=== PATIENT | female | born 1990 | race American Indian/Alaskan Native ===

== ENCOUNTER 2021-04-13 20:29 | Emergency (ER) | payer OTHER ==
[2021-04-13 20:42] VITALS: BP 145/98
[2021-04-13] MEDS ORDERED: SODIUM CHLORIDE 0.9% 1000 ML 1,000 ML IV ONE (21:24)
[2021-04-13] MEDS ORDERED: FAMOTIDINE 20 MG/2 ML INJ IV ONE (21:24)
[2021-04-13 22:09] LABS: Albumin 4.4 g/dL (3.9-5)
[2021-04-13 22:11] LABS: Basophils # (Auto) 0.1 K/mm3 (0.0-0.1); Eosinophils # (Auto) 0.1 K/mm3 (0.0-0.4); Eosinophils % (Auto) 0.8 % (0.0-4.3); Hematocrit 44.6 % (30.3-42.9); Lymphocytes # (Auto) 1.7 K/mm3 (1.2-5.4); Mean Corpuscular HGB Conc 34 % (30-34); Mean Corpuscular Volume 102 fl (79-97); Monocytes # (Auto) 0.5 K/mm3 (0.0-0.8); Platelet Count 280 K/mm3 (140-440); Red Blood Count 4.36 M/mm3 (3.65-5.03); Red Cell Distribution Width 15.2 % (13.2-15.2)
[2021-04-13] MEDS ORDERED: medroxyPROGESTERone ACETATE 5 MG TAB PO ONE (22:16)
--- NOTE | 2021-04-13 22:21 | Emergency Department Report ---
ED Female HPI - General Chief complaint: Vaginal Bleeding Stated complaint: VAGINAL BLEEDING/BLOOD CLOTS Source: patient Mode of arrival: Ambulatory Limitations: No Limitations - History of Present Illness Initial comments: Patient is a nulliparous 30-year-old -[place] female with a history of PCOS, GERD, chronic alcoholism, anxiety and morbid obesity who presents to the ED with complaint of acute onset persistent heavy vaginal bleeding for the last 8 weeks. Patient states that the symptoms started initially as menstrual cycle although she has not had a menstrual cycle in over 2 years after being diagnosed with PCOS. Patient states that her menstrual cycle used to be irregular for a long time then she was diagnosed with PCOS and subsequently placed on some medication that she could not remember which ended up regularizing her menstrual cycle. Patient states that when the medicine ran out she never renewed the medication. Patient states that this latest episode has been persistent, and worsened in the last 5 days with large blood clots. Patient also states that she has been having elevated heart rates because of worsening anxiety. Patient denies vaginal discharge, dysuria, urinary frequency and urgency, abdominal pain, nausea and vomiting, fever, chills, cough, sore throat, dizziness or syncope and headache. MD Complaint: vaginal bleeding, other (anxiety) -: Sudden, week(s) (8) Location: other (vaginal) Radiation: non-radiating Severity: moderate Severity scale (0 -10): 3 Quality: dull Consistency: constant Improves with: none Worsens with: none Are you Now?: No Last Menstrual Period: 02/25/21 EDC: 12/02/21 Associated Symptoms: vaginal bleeding. denies: vaginal discharge, abdominal pain, nausea/vomiting, fever/chills, headaches, loss of appetite, dysuria, hematuria, rash, shortness of breath, syncope, weakness, other - Related Data Sexually active: No : 0 Para: 0 A: 0 Previous Rx's Medication Instructions Recorded Last Taken Type Ranitidine HCl [Zantac] 300 mg PO QDAY #30 tablet 07/07/14 07/17/14 Rx Acetaminophen/Codeine 1 tab PO Q6H PRN #12 tablet 07/19/14 Unknown Rx [Acetaminophen-Codeine #3 TAB] Albuterol Sulfate [Ventolin HFA] 2 puff IH Q4H PRN #1 hfa.aer.ad 08/09/14 Unknown Rx Azithromycin [Zithromax Z-SHARON] 250 mg PO DAILY #1 pkg 08/09/14 Unknown Rx Promethazine /Codeine 5 ml PO Q6H PRN #150 ml 08/09/14 Unknown Rx [Phenergan/Codeine 6.25-10 mg/5 ml] predniSONE [Deltasone] 50 mg PO QDAY #5 tab 08/09/14 Unknown Rx Amoxicillin [Amoxicillin TAB] 875 mg PO BID #20 tablet 12/16/14 Unknown Rx Fluticasone [Flonase] 1 spray NS QDAY #1 bottle 12/16/14 Unknown Rx predniSONE [Prednisone] 20 mg PO QAM #5 tablet 12/16/14 Unknown Rx Acetaminophen/Codeine [Tylenol 1 tab PO Q4HR PRN #21 tablet 03/03/15 Unknown Rx /Codeine # 3 tab] Promethazine [Phenergan TAB] 25 mg PO Q6HR PRN #20 tab 03/03/15 Unknown Rx Famotidine [Pepcid] 20 mg PO BID #60 tablet 04/14/21 Unknown Rx Ondansetron [Zofran Odt] 4 mg PO Q6HR PRN #15 tab.rapdis 04/14/21 Unknown Rx cephALEXin [Keflex] 500 mg PO Q8HR #30 cap 04/14/21 Unknown Rx medroxyPROGESTERone ACETATE 10 mg PO DAILY #14 tablet 04/14/21 Unknown Rx [Provera] Allergies Allergy/AdvReac Type Severity Reaction Status Date / Time naproxen Allergy HALLUCINATE Verified 07/19/14 00:36 ED Review of Systems ROS: Stated complaint: VAGINAL BLEEDING/BLOOD CLOTS Other details as noted in HPI Constitutional: denies: chills, fever Eyes: denies: eye pain, eye discharge, vision change ENT: denies: ear pain, throat pain Respiratory: denies: cough, shortness of breath, wheezing Cardiovascular: denies: chest pain, palpitations Endocrine: no symptoms reported Gastrointestinal: denies: abdominal pain, nausea, vomiting, diarrhea Genitourinary: abnormal menses (Heavy vaginal bleeding). denies: urgency, dysuria, frequency, hematuria, discharge Musculoskeletal: denies: back pain, joint swelling, arthralgia Skin: denies: rash, lesions Neurological: denies: headache, weakness, paresthesias Psychiatric: anxiety. denies: depression, auditory hallucinations, visual hallucinations, suicidal thoughts Hematological/Lymphatic: denies: easy bleeding, easy bruising ED Past Medical Hx - Past Medical History Previous Medical History?: Yes Hx GERD: Yes Additional medical history: H Pylori. PCOS - Surgical History Past Surgical History?: Yes Additional Surgical History: Left hand foreign body - Social History Smoking Status: Never Smoker Substance Use Type: None - Medications Home Medications: Home Medications Medication Instructions Recorded Confirmed Last Taken Type Ranitidine HCl [Zantac] 300 mg PO QDAY #30 tablet 07/07/14 07/19/14 07/17/14 Rx Acetaminophen/Codeine 1 tab PO Q6H PRN #12 tablet 07/19/14 Unknown Rx [Acetaminophen-Codeine #3 TAB] Albuterol Sulfate [Ventolin HFA] 2 puff IH Q4H PRN #1 hfa.aer.ad 08/09/14 Un known Rx Azithromycin [Zithromax Z-SHARON] 250 mg PO DAILY #1 pkg 08/09/14 Unknown Rx Promethazine /Codeine 5 ml PO Q6H PRN #150 ml 08/09/14 Unknown Rx [Phenergan/Codeine 6.25-10 mg/5 ml] predniSONE [Deltasone] 50 mg PO QDAY #5 tab 08/09/14 Unknown Rx Amoxicillin [Amoxicillin TAB] 875 mg PO BID #20 tablet 12/16/14 Unknown Rx Fluticasone [Flonase] 1 spray NS QDAY #1 bottle 12/16/14 Unknown Rx predniSONE [Prednisone] 20 mg PO QAM #5 tablet 12/16/14 Unknown Rx Acetaminophen/Codeine [Tylenol 1 tab PO Q4HR PRN #21 tablet 03/03/15 Unknown Rx /Codeine # 3 tab] Promethazine [Phenergan TAB] 25 mg PO Q6HR PRN #20 tab 03/03/15 Unknown Rx Famotidine [Pepcid] 20 mg PO BID #60 tablet 04/14/21 Unknown Rx Ondansetron [Zofran Odt] 4 mg PO Q6HR PRN #15 tab.rapdis 04/14/21 Unknown Rx cephALEXin [Keflex] 500 mg PO Q8HR #30 cap 04/14/21 Unknown Rx medroxyPROGESTERone ACETATE 10 mg PO DAILY #14 tablet 04/14/21 Unknown Rx [Provera] ED Physical Exam - General Limitations: No Limitations General appearance: alert, in no apparent distress - Head Head exam: Present: atraumatic, normocephalic, normal inspection - Eye Eye exam: Present: normal appearance, PERRL, EOMI Pupils: Present: normal accommodation - ENT ENT exam: Present: normal exam, normal orophraynx, mucous membranes moist, TM's normal bilaterally, normal external ear exam - Neck Neck exam: Present: normal inspection, full ROM. Absent: tenderness - Respiratory Respiratory exam: Present: normal lung sounds bilaterally. Absent: respiratory distress, wheezes, rales, rhonchi, chest wall tenderness, decreased breath sounds, prolonged expiratory - Cardiovascular Cardiovascular Exam: Present: normal rhythm, tachycardia, normal heart sounds. Absent: systolic murmur, diastolic murmur, rubs, gallop - GI/Abdominal GI/Abdominal exam: Present: soft, normal bowel sounds. Absent: distended, tenderness, guarding, rebound, rigid, hyperactive bowel sounds, hypoactive bowel sounds, organomegaly, mass - Bi-manual exam: Present: other (Pelvic exam deferred at this time) - Extremities Exam Extremities exam: Present: normal inspection, full ROM, normal capillary refill - Back Exam Back exam: Present: normal inspection, full ROM. Absent: tenderness, CVA tenderness (R), CVA tenderness (L), muscle spasm - Neurological Exam Neurological exam: Present: alert, oriented X3, CN II-XII intact, normal gait, reflexes normal - Psychiatric Psychiatric exam: Present: normal affect, normal mood, anxious - Skin Skin exam: Present: warm, dry, intact, normal color. Absent: rash ED Course Vital Signs 04/13/21 20:39 Temperature 98.3 F Pulse Rate 100 H Respiratory 18 Rate Blood Pressure 145/98 O2 Sat by Pulse 94 Oximetry ED Medical Decision Making - Lab Data Result diagrams: 04/13/21 21:29 04/13/21 21:29 - Medical Decision Making This is a nulliparous 30-year-old -[place] female with a history of PCOS, GERD, chronic alcoholism, anxiety and morbid obesity who presents to the ED with complaint of acute onset persistent heavy vaginal bleeding for the last 8 weeks. Patient states that the symptoms started initially as menstrual cycle although she has not had a menstrual cycle in over 2 years after being diagnosed with PCOS. Patient states that her menstrual cycle used to be irregular for a long time then she was diagnosed with PCOS and subsequently placed on some medication that she could not remember which ended up regularizing her menstrual cycle. Patient states that when the medicine ran out she never renewed the medication. Patient states that this latest episode has been persistent, and worsened in the last 5 days with large blood clots. Patient also states that she has been having elevated heart rates because of worsening anxiety. In the ED, patient is alert and oriented x3 and is not in any distress but anxious and tachycardic in triage. Labs were drawn including urinalysis, and patient was treated in the ED with Pepcid and normal saline 1 L IV bolus x1. Lab test results were reviewed and showed acute urinary tract infection and elevated LFTs consistent with your chronic alcohol abuse. Therefore take medications as advised, drink plenty of fluids and follow-up with your [facility] physician in 7 to 10 days for reevaluation. Consider alcohol rehab to cope with your anxiety. - Differential Diagnosis Dysfunctional uterine bleeding; ; UTI; metrorrhagia; dehydration Critical care attestation.: If time is entered above; I have spent that time in minutes in the direct care of this critically ill patient, excluding procedure time. ED Disposition Clinical Impression: Dysfunctional uterine bleeding, Metrorrhagia, Anxiety as acute reaction to exceptional stress, Acute urinary tract infection Disposition: 01 HOME / SELF CARE / HOMELESS Is pt being admited?: No Does the pt Need Aspirin: No Condition: Stable Instructions: Urinary Tract Infection, Adult, [id number], Metrorrhagia, [id number], Menorrhagia, [id number], Abnormal Uterine Bleeding, [id number] Additional Instructions: Take medication with food, doing plenty of fluids and follow-up with your primary care physician or [facility] physician in 7 to 10 days for reevaluation. Return to the ED immediately if symptoms get worse. Consider alcohol detox and rehab to help you manage your anxiety. Prescriptions: cephALEXin [Keflex] 500 mg PO Q8HR #30 cap Famotidine [Pepcid] 20 mg PO BID #60 tablet medroxyPROGESTERone ACETATE [Provera] 10 mg PO DAILY #14 tablet Ondansetron [Zofran Odt] 4 mg PO Q6HR PRN #15 tab.rapdis PRN Reason: Nausea Referrals: [facility] [Provider Group] - 3-5 Days Time of Disposition: 00:16 Print Language: GREEK
[2021-04-13 22:24] LABS: Alanine Aminotransferase 96 units/L (7-56); Blood Urea Nitrogen 6 mg/dL (7-17); Calcium 8.4 mg/dL (8.4-10.2); Hemolysis Index 6
[2021-04-13 22:26] LABS: BUN/Creatinine Ratio 10
[2021-04-13 23:48] LABS: Bilirubin,Urine NEG (Negative); Blood,Urine LG (Negative); Color,Urine Red (Yellow); Mucus,Urine FEW /HPF; Urobilinogen,Urine < 2.0 mg/dL (<2.0)
[2021-04-14 00:01] LABS: Protein,Urine >500 mg/dL (Negative)
[2021-04-14 00:02] LABS: RBC,Urine > 182.0 /HPF (0.0-6.0); WBC,Urine > 182.0 /HPF (0.0-6.0)
== END 2021-04-14 02:10 | disposition home or self-care (01) ==
LOC: ED 20:29
DX: N93.8 Other specified abnormal uterine and vaginal bleeding (principal); N92.1 Excessive and frequent menstruation with irregular cycle; F41.1 Generalized anxiety disorder; F43.0 Acute stress reaction; N39.0 Urinary tract infection, site not specified; Z88.8 Allergy status to other drugs, medicaments and biological substances
CPT/HCPCS: 36415; 80053; 81001; 83690; 84703; 85025; 96361; 96374; 99283; J7030

== ENCOUNTER 2021-04-15 18:23 | Emergency (ER) | payer OTHER ==
[2021-04-15 18:31] VITALS: BP 145/90
--- NOTE | 2021-04-15 20:58 | Vascular Lab Report ---
DUPLEX DOPPLER LOWER EXTREMITY VEINS, LEFT INDICATION / CLINICAL INFORMATION: Left leg pain. TECHNIQUE: Duplex doppler imaging was performed through the veins of the left lower extremity using venous compr ession and other maneuvers. COMPARISON: None available. FINDINGS: LEFT COMMON FEMORAL VEIN: Negative. LEFT FEMORAL VEIN: Negative. LEFT POPLITEAL VEIN: Negative. LEFT CALF VEINS: Negative. ADDITIONAL FINDINGS: No abnormal mass or fluid collection is seen. IMPRESSION: No sonographic evidence for DVT in the left lower extremity. Signer Name: Pedro Dobson MD Signed: 04/15/2021 8:54 PM Workstation Name: [id number]
--- NOTE | 2021-04-15 22:18 | Emergency Department Report ---
ED Extremity Problem HPI - General Chief complaint: Extremity Injury, Lower Stated complaint: LEG NUMBNESS/WAS SEEN LASTNIGHT Time Seen by Provider: 04/15/21 21:21 Source: patient Mode of arrival: Ambulatory Limitations: No Limitations - History of Present Illness Initial comments: Patient is a 30-year-old -[place] female with a history of GERD, morbid obesity, and chronic alcoholism who presents to the ED with complaint of acute onset nontraumatic anterior left lower leg and left foot pain for the last 12 hours. Patient states that the pain is worse with movement or palpation of the left foot and left lower leg. Patient denies fall, traumatic injury, nausea, vomiting, fever, chills, dizziness, syncope, chest pain or shortness of breath, back pain, numbness and tingling or weakness of lower extremities bilaterally or change in vision. MD Complaint: extremity pain (Left foot and lower leg pain) -: Sudden, hour(s) (12) Location: left, lower extremity (Lower leg and foot pain) History of Same: No -: Yes arthralgia Radiation: distal Severity scale (0 -10): 4 Quality: aching, dull Consistency: constant Improves with: rest Worsens with: weight bearing, walking, palpation Associated Symptoms: denies other symptoms, arthralgias (Left lower leg and foot pain). denies: chest pain, shortness of breath, fever, myalgias - Related Data Previous Rx's Medication Instructions Recorded Last Taken Type Ranitidine HCl [Zantac] 300 mg PO QDAY #30 tablet 07/07/14 07/17/14 Rx Acetaminophen/Codeine 1 tab PO Q6H PRN #12 tablet 07/19/14 Unknown Rx [Acetaminophen-Codeine #3 TAB] Albuterol Sulfate [Ventolin HFA] 2 puff IH Q4H PRN #1 hfa.aer.ad 08/09/14 Unknown Rx Azithromycin [Zithromax Z-SHARON] 250 mg PO DAILY #1 pkg 08/09/14 Unknown Rx Promethazine /Codeine 5 ml PO Q6H PRN #150 ml 08/09/14 Unknown Rx [Phenergan/Codeine 6.25-10 mg/5 ml] predniSONE [Deltasone] 50 mg PO QDAY #5 tab 08/09/14 Unknown Rx Amoxicillin [Amoxicillin TAB] 875 mg PO BID #20 tablet 12/16/14 Unknown Rx Fluticasone [Flonase] 1 spray NS QDAY #1 bottle 12/16/14 Unknown Rx predniSONE [Prednisone] 20 mg PO QAM #5 tablet 12/16/14 Unknown Rx Acetaminophen/Codeine [Tylenol 1 tab PO Q4HR PRN #21 tablet 03/03/15 Unknown Rx /Codeine # 3 tab] Promethazine [Phenergan TAB] 25 mg PO Q6HR PRN #20 tab 03/03/15 Unknown Rx Famotidine [Pepcid] 20 mg PO BID #60 tablet 04/14/21 Unknown Rx Ondansetron [Zofran Odt] 4 mg PO Q6HR PRN #15 tab.rapdis 04/14/21 Unknown Rx cephALEXin [Keflex] 500 mg PO Q8HR #30 cap 04/14/21 Unknown Rx medroxyPROGESTERone ACETATE 10 mg PO DAILY #14 tablet 04/14/21 Unknown Rx [Provera] Allergies Allergy/AdvReac Type Severity Reaction Status Date / Time naproxen Allergy HALLUCINATE Verified 04/15/21 18:25 ED Review of Systems ROS: Stated complaint: LEG NUMBNESS/WAS SEEN LASTNIGHT Other details as noted in HPI Constitutional: denies: chills, fever Eyes: denies: eye pain, eye discharge, vision change ENT: denies: ear pain, throat pain Respiratory: denies: cough, shortness of breath, wheezing Cardiovascular: denies: chest pain, palpitations Endocrine: no symptoms reported Gastrointestinal: denies: abdominal pain, nausea, diarrhea Genitourinary: denies: urgency, dysuria, discharge Musculoskeletal: arthralgia (Left lower leg and foot pain). denies: back pain, joint swelling Skin: denies: rash, lesions Neurological: denies: headache, weakness, paresthesias Psychiatric: denies: anxiety, depression Hematological/Lymphatic: denies: easy bleeding, easy bruising ED Past Medical Hx - Past Medical History Hx GERD: Yes Additional medical history: H Pylori. PCOS - Surgical History Additional Surgical History: Left hand foreign body - Social History Smoking Status: Never Smoker Substance Use Type: None - Medications Home Medications: Home Medications Medication Instructions Recorded Confirmed Last Taken Type Ranitidine HCl [Zantac] 300 mg PO QDAY #30 tablet 07/07/14 07/19/14 07/17/14 Rx Acetaminophen/Codeine 1 tab PO Q6H PRN #12 tablet 07/19/14 Unknown Rx [Acetaminophen-Codeine #3 TAB] Albuterol Sulfate [Ventolin HFA] 2 puff IH Q4H PRN #1 hfa.aer.ad 08/09/14 Unknown Rx Azithromycin [Zithromax Z-SHARON] 250 mg PO DAILY #1 pkg 08/09/14 Unknown Rx Promethazine /Codeine 5 ml PO Q6H PRN #150 ml 08/09/14 Unknown Rx [Phenergan/Codeine 6.25-10 mg/5 ml] predniSONE [Deltasone] 50 mg PO QDAY #5 tab 08/09/14 Unknown Rx Amoxicillin [Amoxicillin TAB] 875 mg PO BID #20 tablet 12/16/14 Unknown Rx Fluticasone [Flonase] 1 spray NS QDAY #1 bottle 12/16/14 Unknown Rx predniSONE [Prednisone] 20 mg PO QAM #5 tablet 12/16/14 Unknown Rx Acetaminophen/Codeine [Tylenol 1 tab PO Q4HR PRN #21 tablet 03/03/15 Unknown Rx /Codeine # 3 tab] Promethazine [Phenergan TAB] 25 mg PO Q6HR PRN #20 tab 03/03/15 Unknown Rx Famotidine [Pepcid] 20 mg PO BID #60 tablet 04/14/21 Unknown Rx Ondansetron [Zofran Odt] 4 mg PO Q6HR PRN #15 tab.rapdis 04/14/21 Unknown Rx cephALEXin [Keflex] 500 mg PO Q8HR #30 cap 04/14/21 Unknown Rx medroxyPROGESTERone ACETATE 10 mg PO DAILY #14 tablet 04/14/21 Unknown Rx [Provera] ED Physical Exam - General Limitations: No Limitations General appearance: alert, in no apparent distress - Head Head exam: Present: atraumatic, normocephalic, normal inspection - Eye Eye exam: Present: normal appearance, PERRL, EOMI Pupils: Present: normal accommodation - ENT ENT exam: Present: normal exam, normal orophraynx, mucous membranes moist, TM's normal bilaterally, normal external ear exam - Neck Neck exam: Present: normal inspection, full ROM - Respiratory Respiratory exam: Present: normal lung sounds bilaterally. Absent: respiratory distress, wheezes, rhonchi, chest wall tenderness, accessory muscle use, prolonged expiratory - Cardiovascular Cardiovascular Exam: Present: regular rate, normal rhythm, normal heart sounds. Absent: systolic murmur, diastolic murmur, rubs, gallop - GI/Abdominal GI/Abdominal exam: Present: soft, normal bowel sounds. Absent: tenderness, guarding, rebound, hyperactive bowel sounds, hypoactive bowel sounds, organomegaly - Extremities Exam Extremities exam: Present: normal inspection, full ROM, tenderness (Palpable mild anterior left lower leg and foot tenderness), normal capillary refill - Back Exam Back exam: Present: normal inspection, full ROM. Absent: tenderness, CVA tenderness (R), CVA tenderness (L), muscle spasm, paraspinal tenderness, vertebral tenderness - Neurological Exam Neurological exam: Present: alert, oriented X3, CN II-XII intact, normal gait, reflexes normal - Psychiatric Psychiatric exam: Present: normal affect, normal mood - Skin Skin exam: Present: warm, dry, intact, normal color. Absent: rash ED Course Vital Signs 04/15/21 04/16/21 18:31 01:55 Temperature 97.9 F Pulse Rate 109 H 92 H Respiratory 18 16 Rate Blood Pressure 145/90 O2 Sat by Pulse 99 100 Oximetry ED Medical Decision Making - Medical Decision Making This is a 30-year-old -[place] female with a history of GERD, morbid obesity, and chronic alcoholism who presents to the ED with complaint of acute onset nontraumatic anterior left lower leg and left foot pain for the last 12 hours. Patient states that the pain is worse with movement or palpation of the left foot and left lower leg. In the ED, patient is alert and oriented x3 and is not in any distress. The left lower leg Doppler ultrasound showed no sonographic evidence of DVT. Patient symptoms are likely musculoskeletal as it is reproduced by palpation and movement. Patient was discharged home and advised to take [id number] pain medications ibuprofen or Tylenol as needed and follow-up with her primary care physician in 5 to 7 days for reevaluation or return to the ED immediately if symptoms get worse. - Differential Diagnosis Muscle strain; muscle spasm; DVT; tendinitis Critical care attestation.: If time is entered above; I have spent that time in minutes in the direct care of this critically ill patient, excluding procedure time. ED Disposition Clinical Impression: Muscle strain of left lower extremity Qualifiers: Encounter type: initial encounter Qualified Code(s): S86.912A - Strain of unspecified muscle(s) and tendon(s) at lower leg level, left leg, initial encounter Disposition: HOME / SELF CARE / HOMELESS Is pt being admited?: No Does the pt Need Aspirin: No Condition: Stable Instructions: Muscle Strain, [id number] Additional Instructions: The left lower extremity Doppler ultrasound showed no sonographic evidence of DVT. Your symptoms are likely musculoskeletal muscle strain. Therefore take [id number] pain medications like ibuprofen or Tylenol as needed with food for pain. Follow-up with your primary care physician in 5 to 7 days for reevaluation or return to the ED immediately if symptoms get worse. Referrals: FRANK BENITEZ NP [Primary Care Provider] - 3-5 Days Forms: Work/School Release Form(ED) Time of Disposition: 22:19 Print Language: [place]
== END 2021-04-16 03:57 | disposition home or self-care (01) ==
LOC: ED 18:23
DX: S86.912A Strain of unspecified muscle(s) and tendon(s) at lower leg level, left leg, initial encounter (principal); Z88.6 Allergy status to analgesic agent; X58.XXXA Exposure to other specified factors, initial encounter; Y93.89 Activity, other specified; Y92.89 Other specified places as the place of occurrence of the external cause; Y99.8 Other external cause status
CPT/HCPCS: 99283

== ENCOUNTER 2021-04-19 10:04 | Emergency (ER) | payer OTHER ==
--- NOTE | 2021-04-19 10:15 | Emergency Department Report ---
ED General Adult HPI - General Chief complaint: Medical Clearance Stated complaint: My GI doctor sent me PUI?: No Time Seen by Provider: 04/19/21 10:13 Source: patient, RN notes reviewed Mode of arrival: Ambulatory Limitations: No Limitations - History of Present Illness Initial comments: During the history and physical examination, I am chaperoned by ABBY ROSENBAUM The patient is a 30-year-old female. She she reports that she is not . She has a history of morbid obesity. She presents to the ER today with a complaint of painless rectal bleeding. She reports that her mid level clinician, Dr. Rodriguez told her to come to the emergency room. The patient denies headache, neck pain, chest pain, abdominal pain, shortness of breath. She denies hematemesis. She denies dysuria. She reports intermittent vaginal bleeding which is basically resolved at this time, as she reports that she recently sought medical evaluation for vaginal bleeding. Report of rectal bleeding is dark red blood for the past day or so. It is associated with defecation. The patient denies foreign body insertion, and receptive anal intercourse. The patient reports intermittent vomiting, which is now resolved. There is no abdominal pain at this time. -: Gradual Severity scale (0 -10): 8 Consistency: intermittent Improves with: none Worsens with: none - Related Data Previous Rx's Medication Instructions Recorded Last Taken Type Ranitidine HCl [Zantac] 300 mg PO QDAY #30 tablet 07/07/14 07/17/14 Rx Albuterol Sulfate [Ventolin HFA] 2 puff IH Q4H PRN #1 hfa.aer.ad 08/09/14 Unknown Rx Azithromycin [Zithromax Z-SHARON] 250 mg PO DAILY #1 pkg 08/09/14 Unknown Rx predniSONE [Deltasone] 50 mg PO QDAY #5 tab 08/09/14 Unknown Rx Amoxicillin [Amoxicillin TAB] 875 mg PO BID #20 tablet 12/16/14 Unknown Rx Fluticasone [Flonase] 1 spray NS QDAY #1 bottle 12/16/14 Unknown Rx Acetaminophen/Codeine [Tylenol 1 tab PO Q4HR PRN #21 tablet 03/03/15 Unknown Rx /Codeine # 3 tab] Famotidine [Pepcid] 20 mg PO BID #60 tablet 04/14/21 Unknown Rx Ondansetron [Zofran Odt] 4 mg PO Q6HR PRN #15 tab.rapdis 04/14/21 Unknown Rx cephALEXin [Keflex] 500 mg PO Q8HR #30 cap 04/14/21 Unknown Rx medroxyPROGESTERone ACETATE 10 mg PO DAILY #14 tablet 04/14/21 Unknown Rx [Provera] Multivitamin with Folic Acid [Cvs 400 mcg PO QDAY #30 tablet 04/19/21 Unknown Rx One Daily Essential Tablet] chlordiazePOXIDE [Librium] 25 mg PO Q6H PRN #25 capsule 04/19/21 Unknown Rx Allergies Allergy/AdvReac Type Severity Reaction Status Date / Time naproxen Allergy HALLUCINATE Verified 04/15/21 18:25 ED Review of Systems ROS: Stated complaint: bleeding Other details as noted in HPI Constitutional: denies: fever Eyes: denies: eye discharge ENT: denies: epistaxis Respiratory: denies: cough Cardiovascular: denies: chest pain Gastrointestinal: nausea, vomiting, hematochezia. denies: abdominal pain, hematemesis, melena Genitourinary: as per HPI. denies: dysuria Psychiatric: anxiety Hematological/Lymphatic: denies: easy bleeding ED Past Medical Hx - Past Medical History Hx GERD: Yes Additional medical history: H Pylori. PCOS - Surgical History Additional Surgical History: Left hand foreign body - Social History Smoking Status: Never Smoker Substance Use Type: None - Medications Home Medications: Home Medications Medication Instructions Recorded Confirmed Last Taken Type Ranitidine HCl [Zantac] 300 mg PO QDAY #30 tablet 07/07/14 07/19/14 07/17/14 Rx Albuterol Sulfate [Ventolin HFA] 2 puff IH Q4H PRN #1 hfa.aer.ad 08/09/14 Unknown Rx Azithromycin [Zithromax Z-SHARON] 250 mg PO DAILY #1 pkg 08/09/14 Unknown Rx predniSONE [Deltasone] 50 mg PO QDAY #5 tab 08/09/14 Unknown Rx Amoxicillin [Amoxicillin TAB] 875 mg PO BID #20 tablet 12/16/14 Unknown Rx Fluticasone [Flonase] 1 spray NS QDAY #1 bottle 12/16/14 Unknown Rx Acetaminophen/Codeine [Tylenol 1 tab PO Q4HR PRN #21 tablet 03/03/15 Unknown Rx /Codeine # 3 tab] Famotidine [Pepcid] 20 mg PO BID #60 tablet 04/14/21 Unknown Rx Ondansetron [Zofran Odt] 4 mg PO Q6HR PRN #15 tab.rapdis 04/14/21 Unknown Rx cephALEXin [Keflex] 500 mg PO Q8HR #30 cap 04/14/21 Unknown Rx medroxyPROGESTERone ACETATE 10 mg PO DAILY #14 tablet 04/14/21 Unknown Rx [Provera] Multivitamin with Folic Acid [[facility]vs 400 mcg PO QDAY #30 tablet 04/19/21 Unknown Rx One Daily Essential Tablet] chlordiazePOXIDE [Librium] 25 mg PO Q6H PRN #25 capsule 04/19/21 Unknown Rx ED Physical Exam - General Limitations: No Limitations General appearance: alert, in no apparent distress - Head Head exam: Present: atraumatic, normocephalic - Eye Eye exam: Present: normal appearance, EOMI. Absent: nystagmus - ENT ENT exam: Present: normal exam, normal orophraynx, mucous membranes moist, normal external ear exam - Neck Neck exam: Present: normal inspection, full ROM. Absent: tenderness, meningismus - Respiratory Respiratory exam: Present: normal lung sounds bilaterally. Absent: respiratory distress, wheezes, rales, rhonchi, stridor, decreased breath sounds - Cardiovascular Cardiovascular Exam: Present: regular rate, normal rhythm, normal heart sounds. Absent: bradycardia, tachycardia, irregular rhythm, systolic murmur, diastolic murmur, rubs, gallop - GI/Abdominal GI/Abdominal exam: Present: soft. Absent: distended, tenderness, guarding, rebound, rigid, pulsatile mass - Rectal Rectal exam: Present: normal inspection, normal rectal tone, heme (-) stool, other (Chaperoned ABBY Clinton). Absent: heme (+) stool, black stool, bloody stool, fecal impaction, hemorrhoids - Extremities Exam Extremities exam: Present: normal inspection, full ROM, other (2+ pulses noted in the bilateral upper and lower extremities. There is no palpable cord. negative Homans sign. Muscular compartments are soft. The pelvis is stable.). Absent: pedal edema, calf tenderness - Back Exam Back exam: Present: normal inspection, full ROM. Absent: tenderness, CVA tenderness (R), CVA tenderness (L), paraspinal tenderness, vertebral tenderness - Neurological Exam Neurological exam: Present: alert, oriented X3, normal gait, other (No facial droop. Tongue midline. Extraocular movements intact bilaterally. Facial sensation intact to light touch in V1, V2, V3 distribution bilaterally. 5 and a 5 strength in 4 extremities. Sensation intact to light touch in 4 extremities.). Absent: motor sensory deficit - Psychiatric Psychiatric exam: Present: normal affect, normal mood - Skin Skin exam: Present: warm, dry, intact, normal color. Absent: rash ED Course Vital Signs 04/19/21 04/19/21 04/19/21 10:06 11:27 11:28 Temperature 98 F 98.0 F Pulse Rate 91 H 88 Respiratory 20 20 20 Rate Blood Pressure 157/100 130/71 [Right] O2 Sat by Pulse 96 99 99 Oximetry - Reevaluation(s) Reevaluation #1: 04/19/21 14:32 Differential diagnosis, including but not limited to: Angiodysplasia, irritable bowel syndrome, internal hemorrhoids, dehydration, inflammatory bowel disease, malignancy Assessment and plan: 35-year-old female, who was afebrile, with reassuring vital signs, clinically sober, with no abdominal tenderness, rebound or guarding, with no active vomiting, she is not , there is no blood noted on rectal examination. Patient observed in this department for prolonged period of time without clinical decompensation. Initial laboratory studies suggested dehydration and mild metabolic acidosis. IV fluids ordered, however, repeat basic metabolic panel was drawn prior to initiation of IV fluids. Currently awaiting results of repeat basic metabolic panel. As a courtesy, will discuss with her GI physician. Patient resting comfortably on stretcher at this time, in no acute distress. CBC appears to be at baseline. 04/19/21 14:[address] Dhillon, GI physician on-call. Discussed history, physical, laboratory studies and my clinical impression. Located patient's old laboratory studies, it appears that she was found to have transaminitis a few days ago, suggestive of an alcoholic pattern. Her basic metabolic panel a few days ago shows an anion gap acidosis. Her BMP today appears to be improved when compared to prior. As expected, GI recommends discharge with outpatient follow-up. We are awaiting our repeat basic metabolic panel here in the emergency room. 04/19/21 15:37 Change in plans. I have gone back to discuss with the patient. The patient aguilar s admit to "drinking almost every day." I discussed the patient's laboratory studies with her today. She states that she promises that she will decrease and stop alcohol consumption, drink "lots of water", and she is asking to be discharged at this time, as she wants to go. Given this history, her dehydration and anion gap acidosis are likely secondary to alcoholism. Her basic metabolic panel today is improved when compared to prior, she is awake, alert, oriented, sober, speaking on the cell phone, exhibits decision- making capacity, free from distracting injury, and endorses that she is reliable to follow-up. She can follow-up with outpatient primary care or GI for repeat basic metabolic panel. ED Medical Decision Making - Lab Data Result diagrams: 04/19/21 10:49 04/19/21 10:49 Vital Signs 04/19/21 04/19/21 04/19/21 10:06 11:27 11:28 Temperature 98 F 98.0 F Pulse Rate 91 H 88 Respiratory 20 20 20 Rate Blood Pressure 157/100 130/71 [Right] O2 Sat by Pulse 96 99 99 Oximetry Lab Results 04/19/21 04/19/21 04/19/21 Range/Units 10:49 10:49 10:49 WBC 5.9 (4.5-11.0) K/mm3 RBC 4.13 (3.65-5.03) M/mm3 Hgb 14.2 (10.1-14.3) gm/dl Hct 41.8 (30.3-42.9) % MCV 101 H (79-97) fl MCH 34 H (28-32) pg MCHC 34 (30-34) % RDW 15.1 (13.2-15.2) % Plt Count 195 (140-440) K/mm3 Lymph % (Auto) 27.4 (13.4-35.0) % Mcintosh % (Auto) 7.8 H (0.0-7.3) % Eos % (Auto) 0.4 (0.0-4.3) % Baso % (Auto) 1.0 (0.0-1.8) % Lymph # (Auto) 1.6 (1.2-5.4) K/mm3 Mcintosh # (Auto) 0.5 (0.0-0.8) K/mm3 Eos # (Auto) 0.0 (0.0-0.4) K/mm3 Baso # (Auto) 0.1 (0.0-0.1) K/mm3 Seg Neutrophils % 63.4 (40.0-70.0) % Seg Neutrophils # 3.8 (1.8-7.7) K/mm3 PT 13.3 (12.2-14.9) Sec. INR 0.91 (0.87-1.13) Sodium 138 (137-145) mmol/L Potassium 3.6 (3.6-5.0) mmol/L Chloride 98.2 (98-107) mmol/L Carbon Dioxide 19 L (22-30) mmol/L Anion Gap 24 mmol/L BUN 5 L (7-17) mg/dL Creatinine 0.5 L (0.6-1.2) mg/dL Estimated GFR > 60 ml/min BUN/Creatinine Ratio 10 % Glucose 122 H (65-100) mg/dL Calcium 9.0 (8.4-10.2) mg/dL HCG, Quant (0-4) mIU/mL 04/19/21 Range/Units 10:49 WBC (4.5-11.0) K/mm3 RBC (3.65-5.03) M/mm3 Hgb (10.1-14.3) gm/dl Hct (30.3-42.9) % MCV (79-97) fl MCH (28-32) pg MCHC (30-34) % RDW (13.2-15.2) % Plt Count (140-440) K/mm3 Lymph % (Auto) (13.4-35.0) % Mcintosh % (Auto) (0.0-7.3) % Eos % (Auto) (0.0-4.3) % Baso % (Auto) (0.0-1.8) % Lymph # (Auto) (1.2-5.4) K/mm3 Mcintosh # (Auto) (0.0-0.8) K/mm3 Eos # (Auto) (0.0-0.4) K/mm3 Baso # (Auto) (0.0-0.1) K/mm3 Seg Neutrophils % (40.0-70.0) % Seg Neutrophils # (1.8-7.7) K/mm3 PT (12.2-14.9) Sec. INR (0.87-1.13) Sodium (137-145) mmol/L Potassium (3.6-5.0) mmol/L Chloride (98-107) mmol/L Carbon Dioxide (22-30) mmol/L Anion Gap mmol/L BUN (7-17) mg/dL Creatinine (0.6-1.2) mg/dL Estimated GFR ml/min BUN/Creatinine Ratio % Glucose (65-100) mg/dL Calcium (8.4-10.2) mg/dL HCG, Quant < 2 (0-4) mIU/mL Critical care attestation.: If time is entered above; I have spent that time in minutes in the direct care of this critically ill patient, excluding procedure time. ED Disposition Clinical Impression: Dehydration, Alcohol use, History of GI bleed Disposition: 01 HOME / SELF CARE / HOMELESS Is pt being admited?: No Does the pt Need Aspirin: No Condition: Good Instructions: Dehydration, Adult, [id number], Alcohol Use Disorder Additional Instructions: Do not take Motrin, ibuprofen, Naprosyn, Aleve. Decrease/minimize alcohol consumption. Avoid consumption of heavy and spicy foods. Take a multivitamin on a daily basis. Take Librium as needed for sensation of alcohol withdrawal and shakes. Follow-up with your primary care doctor or GI physician within the next week for repeat checkup and evaluation. It is especially important to follow-up with outpatient GI physician for evaluation for outpatient colonoscopy, for history of GI bleed. Not following up as recommended with GI as an outpatient may result in undiagnosed tumor, cancer, malignancy, therefore, is very important to follow-up with outpatient GI as recommended. Long-term consumption of alcohol may cause addiction, disability, multiorgan failure and damage, so recommend minimal /no alcohol intake. Please return to the emergency room right away with new pain, worsened pain, migration of pain projectile vomiting, change in mental status, confusion, inability to tolerate liquid feeds, new, worsened or different symptoms not present on the initial emergency room evaluation. Referrals: RANDI RODRIGUEZ MD [Staff Physician] - 3-5 Days [facility] [Provider Group] - 3-5 Days Forms: Accompanied Note
[2021-04-19] MEDS ORDERED: diphenhydrAMINE 25 MG CAP PO ONE (11:10)
[2021-04-19] MEDS ORDERED: ONDANSETRON 4 MG ODT TAB PO ONE (11:10)
[2021-04-19 11:27] LABS: Basophils # (Auto) 0.1 K/mm3 (0.0-0.1); Eosinophils % (Auto) 0.4 % (0.0-4.3); Hematocrit 41.8 % (30.3-42.9); Hemoglobin 14.2 gm/dl (10.1-14.3); Lymphocytes # (Auto) 1.6 K/mm3 (1.2-5.4); Lymphocytes % (Auto) 27.4 % (13.4-35.0); Mean Corpuscular HGB Conc 34 % (30-34); Mean Corpuscular Volume 101 fl (79-97); Monocytes # (Auto) 0.5 K/mm3 (0.0-0.8); Monocytes % (Auto) 7.8 % (0.0-7.3); Platelet Count 195 K/mm3 (140-440); Red Blood Count 4.13 M/mm3 (3.65-5.03); Red Cell Distribution Width 15.1 % (13.2-15.2)
[2021-04-19 11:29] VITALS: BP 130/71
[2021-04-19 11:41] LABS: Blood Urea Nitrogen 5 mg/dL (7-17); Hemolysis Index 3
[2021-04-19] MEDS ORDERED: LACTATED RINGERS 2,000 ML IV ONE (11:43)
[2021-04-19 11:44] LABS: BUN/Creatinine Ratio 10
[2021-04-19 12:19] LABS: INR 0.91 (0.87-1.13)
[2021-04-19] MEDS ORDERED: LACTATED RINGERS 1,000 ML IV ONE (15:33)
== END 2021-04-19 15:57 | disposition home or self-care (01) ==
LOC: ED 10:04
DX: E86.0 Dehydration (principal); F10.99 Alcohol use, unspecified with unspecified alcohol-induced disorder; K92.9 Disease of digestive system, unspecified; Z88.6 Allergy status to analgesic agent
CPT/HCPCS: 36415; 80048; 84702; 85025; 85610; 96360; 96361; 99283; J7120; Q0162

== ENCOUNTER 2021-05-31 13:43 | Emergency (ER) | payer OTHER ==
--- NOTE | 2021-05-31 14:04 | Event Note ---
ED Screening Note ED Screening Note: pt walked from room 6 mse to triage- HR 120 and Sat 90 covid pos dx on Friday co sob and cp pmh predm md anxiety rx metformin lexapro vistaril flagyl- so she does not drink she got covid while in [facility] This initial assessment/diagnostic orders/clinical plan/treatment(s) is/are subject to change based on patients health status, clinical progression and re- assessment by fellow clinical providers in the ED. Further treatment and workup at subsequent clinical providers discretion. Patient/guardian urged not to elope from the ED as their condition may be serious if not clinically assessed and managed. Initial orders include: will need ro PE given her covid status
[2021-05-31] MEDS ORDERED: SODIUM CHLORIDE 0.9% 1000 ML 1,000 ML IV ONE (14:12)
[2021-05-31 14:36] LABS: Basophils % (Auto) 0.4 % (0.0-1.8); Eosinophils % (Auto) 0.3 % (0.0-4.3); Hematocrit 43.1 % (30.3-42.9); Hemoglobin 14.4 gm/dl (10.1-14.3); Lymphocytes # (Auto) 1.7 K/mm3 (1.2-5.4); Lymphocytes % (Auto) 15.3 % (13.4-35.0); Mean Corpuscular HGB Conc 33 % (30-34); Mean Corpuscular Volume 94 fl (79-97); Monocytes # (Auto) 0.6 K/mm3 (0.0-0.8); Monocytes % (Auto) 5.2 % (0.0-7.3); Platelet Count 397 K/mm3 (140-440); Red Blood Count 4.58 M/mm3 (3.65-5.03); Red Cell Distribution Width 15.7 % (13.2-15.2)
--- NOTE | 2021-05-31 14:45 | Emergency Department Report ---
HPI - General Chief Complaint: Dyspnea/Respdistress Time Seen by Provider: 05/31/21 13:59 - HPI HPI: 30-year-old -Japanese female presents to the emergency department with a complaint of shortness of breath, generalized chest discomfort, and a cough, that is been going on for the past 3 to 4 days. The patient was found to be positive for COVID-19 last Friday, 05/25. Prior to that the patient had been having severe head congestion for the previous 4 days. She has a history of prediabetes. She denies any recent travel or sick contacts at home. Patient presented through triage with an elevated heart rate and decreased oxygen saturation. She denies any fever, lower extremity swelling, nausea, vomiting, diaphoresis. ED Past Medical Hx - Past Medical History Hx GERD: Yes Additional medical history: H Pylori. PCOS - Surgical History Additional Surgical History: Left hand foreign body - Social History Smoking Status: Never Smoker Substance Use Type: None - Medications Home Medications: Home Medications Medication Instructions Recorded Confirmed Last Taken Type Ranitidine HCl [Zantac] 300 mg PO QDAY #30 tablet 07/07/14 07/19/14 07/17/14 Rx Albuterol Sulfate [Ventolin HFA] 2 puff IH Q4H PRN #1 hfa.aer.ad 08/09/14 Unknown Rx predniSONE [Deltasone] 50 mg PO QDAY #5 tab 08/09/14 Unknown Rx Amoxicillin [Amoxicillin TAB] 875 mg PO BID #20 tablet 12/16/14 Unknown Rx Fluticasone [Flonase] 1 spray NS QDAY #1 bottle 12/16/14 Unknown Rx Acetaminophen/Codeine [Tylenol 1 tab PO Q4HR PRN #21 tablet 03/03/15 Unknown Rx /Codeine # 3 tab] Famotidine [Pepcid] 20 mg PO BID #60 tablet 04/14/21 Unknown Rx Ondansetron [Zofran Odt] 4 mg PO Q6HR PRN #15 tab.rapdis 04/14/21 Unknown Rx cephALEXin [Keflex] 500 mg PO Q8HR #30 cap 04/14/21 Unknown Rx medroxyPROGESTERone ACETATE 10 mg PO DAILY #14 tablet 04/14/21 Unknown Rx [Provera] Multivitamin with Folic Acid [Cvs 400 mcg PO QDAY #30 tablet 04/19/21 Unknown Rx One Daily Essential Tablet] chlordiazePOXIDE [Librium] 25 mg PO Q6H PRN #25 capsule 04/19/21 Unknown Rx Albuterol Mdi (or & Nicu Only) 2 puff IH QID PRN #8.5 gram 05/31/21 Unknown Rx [ProAir HFA Inhaler] Azithromycin [Zithromax Z-SHARON] 250 mg PO DAILY #6 tab 05/31/21 Unknown Rx Azithromycin [Zithromax Z-SHARON] 250 mg PO DAILY #6 tab 05/31/21 Unknown Rx ED Review of Systems ROS: Stated complaint: COVID + Other details as noted in HPI Comment: All other systems reviewed and negative Constitutional: denies: chills, fever Eyes: denies: eye pain, vision change ENT: congestion. denies: ear pain, throat pain Respiratory: cough, shortness of breath Cardiovascular: chest pain. denies: palpitations, edema Gastrointestinal: denies: abdominal pain, vomiting Genitourinary: denies: dysuria, discharge Musculoskeletal: denies: back pain, arthralgia Skin: denies: rash, lesions Neurological: denies: weakness, confusion Physical Exam - Physical Exam Vital Signs: Vital Signs 05/31/21 13:49 Temperature 97.5 F L Pulse Rate 105 H Respiratory 20 Rate Blood Pressure 104/77 [Right] O2 Sat by Pulse 95 Oximetry Physical Exam: GENERAL: The patient is well-developed well-nourished. HENT: Normocephalic. Atraumatic. Patient has moist mucous membranes. EYES: Extraocular motions are intact. NECK: Supple. Trachea is midline. CHEST/LUNGS: Mild rhonchi heard. No tachypnea or accessory muscle use. HEART/CARDIOVASCULAR: Regular. There is mild tachycardia. There is no murmur. ABDOMEN: Abdomen is soft, nontender. Patient has normal bowel sounds. Obese habitus. SKIN: Skin is warm and dry. NEURO: The patient is awake, alert, and oriented. The patient is cooperative. The patient has no focal neurologic deficits. Normal speech. MUSCULOSKELETAL: There is no tenderness or deformity. There is no limitation range of motion. ED Course Vital Signs 05/31/21 13:49 Temperature 97.5 F L Pulse Rate 105 H Respiratory 20 Rate Blood Pressure 104/77 [Right] O2 Sat by Pulse 95 Oximetry ED Medical Decision Making - Lab Data Result diagrams: 05/31/21 14:14 05/31/21 14:14 Lab Results 05/31/21 05/31/21 05/31/21 Range/Units 14:14 14:14 14:14 WBC 10.8 (4.5-11.0) K/mm3 RBC 4.58 (3.65-5.03) M/mm3 Hgb 14.4 H (10.1-14.3) gm/dl Hct 43.1 H (30.3-42.9) % MCV 94 (79-97) fl MCH 31 (28-32) pg MCHC 33 (30-34) % RDW 15.7 H (13.2-15.2) % Plt Count 397 (140-440) K/mm3 Lymph % (Auto) 15.3 (13.4-35.0) % [place] % (Auto) 5.2 (0.0-7.3) % Eos % (Auto) 0.3 (0.0-4.3) % Baso % (Auto) 0.4 (0.0-1.8) % Lymph # (Auto) 1.7 (1.2-5.4) K/mm3 [place] # (Auto) 0.6 (0.0-0.8) K/mm3 Eos # (Auto) 0.0 (0.0-0.4) K/mm3 Baso # (Auto) 0.0 (0.0-0.1) K/mm3 Seg Neutrophils % 78.8 H (40.0-70.0) % Seg Neutrophils # 8.5 H (1.8-7.7) K/mm3 Sodium 134 L (137-145) mmol/L Potassium 3.9 (3.6-5.0) mmol/L Chloride 96.4 L (98-107) mmol/L Carbon Dioxide 21 L (22-30) mmol/L Anion Gap 21 mmol/L BUN 6 L (7-17) mg/dL Creatinine 0.6 (0.6-1.2) mg/dL Estimated GFR > 60 ml/min BUN/Creatinine Ratio 10 % Glucose 143 H (65-100) mg/dL Calcium 9.1 (8.4-10.2) mg/dL Total Bilirubin 0.50 (0.1-1.2) mg/dL AST 33 (5-40) units/L ALT 32 (7-56) units/L Alkaline Phosphatase 76 (35-129) units/L Troponin T (0.00-0.029) ng/mL Total Protein 8.5 H (6.3-8.2) g/dL Albumin 3.9 (3.9-5) g/dL Albumin/Globulin Ratio 0.8 % HCG, Qual Negative (Negative) Urine Color (Yellow) Urine Turbidity (Clear) Urine pH (5.0-7.0) Ur Specific [place] (1.003-1.030) Urine Protein (Negative) mg/dL Urine Glucose (UA) (Negative) mg/dL Urine Ketones (Negative) mg/dL Urine Blood (Negative) Urine Nitrite (Negative) Urine Bilirubin (Negative) Urine Urobilinogen (<2.0) mg/dL Ur Leukocyte Esterase (Negative) Urine WBC (Auto) (0.0-6.0) /HPF Urine RBC (Auto) (0.0-6.0) /HPF U Epithel Cells (Auto) (0-13.0) /HPF Urine Mucus /HPF 05/31/21 05/31/21 Range/Units 14:28 Unknown WBC (4.5-11.0) K/mm3 RBC (3.65-5.03) M/mm3 Hgb (10.1-14.3) gm/dl Hct (30.3-42.9) % MCV (79-97) fl MCH (28-32) pg MCHC (30-34) % RDW (13.2-15.2) % Plt Count (140-440) K/mm3 Lymph % (Auto) (13.4-35.0) % [place] % (Auto) (0.0-7.3) % Eos % (Auto) (0.0-4.3) % Baso % (Auto) (0.0-1.8) % Lymph # (Auto) (1.2-5.4) K/mm3 [place] # (Auto) (0.0-0.8) K/mm3 Eos # (Auto) (0.0-0.4) K/mm3 Baso # (Auto) (0.0-0.1) K/mm3 Seg Neutrophils % (40.0-70.0) % Seg Neutrophils # (1.8-7.7) K/mm3 Sodium (137-145) mmol/L Potassium (3.6-5.0) mmol/L Chloride (98-107) mmol/L Carbon Dioxide (22-30) mmol/L Anion Gap mmol/L BUN (7-17) mg/dL Creatinine (0.6-1.2) mg/dL Estimated GFR ml/min BUN/Creatinine Ratio % Glucose (65-100) mg/dL Calcium (8.4-10.2) mg/dL Total Bilirubin (0.1-1.2) mg/dL AST (5-40) units/L ALT (7-56) units/L Alkaline Phosphatase (35-129) units/L Troponin T < 0.010 (0.00-0.029) ng/mL Total Protein (6.3-8.2) g/dL Albumin (3.9-5) g/dL Albumin/Globulin Ratio % HCG, Qual (Negative) Urine Color Tina (Yellow) Urine Turbidity Clear (Clear) Urine pH 6.0 (5.0-7.0) Ur Specific [place] 1.020 (1.003-1.030) Urine Protein 30 mg/dl (Negative) mg/dL Urine Glucose (UA) Neg (Negative) mg/dL Urine Ketones 20 (Negative) mg/dL Urine Blood Mod (Negative) Urine Nitrite Neg (Negative) Urine Bilirubin Neg (Negative) Urine Urobilinogen 2.0 (<2.0) mg/dL Ur Leukocyte Esterase Neg (Negative) Urine WBC (Auto) 5.0 (0.0-6.0) /HPF Urine RBC (Auto) 2.0 (0.0-6.0) /HPF U Epithel Cells (Auto) 8.0 (0-13.0) /HPF Urine Mucus Few /HPF - EKG Data -: EKG Interpreted by Mi EKG shows normal: sinus rhythm, axis, intervals, QRS complexes, ST-T waves Rate: normal - EKG Data When compared to previous EKG there are: previous EKG unavailable Interpretation: normal EKG - Radiology Data Radiology results: report reviewed XR chest 1V ap INDICATION / CLINICAL INFORMATION: CP COMPARISON: X-ray from 2011 would not load FINDINGS: SUPPORT DEVICES: None. HEART / MEDIASTINUM: Cardiac silhouette is partially obscured. LUNGS / PLEURA: Elevated left hemidiaphragm. Left basilar opacity. Costophrenic sulci are sharp. No pneumothorax. ADDITIONAL FINDINGS: No significant additional findings. IMPRESSION: 1. Elevated left hemidiaphragm with left basilar opacity. Findings could be related atelectasis or airspace disease such as pneumonia. CTA CHEST WITH IV CONTRAST INDICATION: PE PROTOCOL; SOB; COVID POS. TECHNIQUE: Axial CT images were obtained through the chest after injection of IV contrast. 3 plane MIP reconstructions were produced. All CT scans at this location are performed using CT dose reduction for ALARA by means of automated exposure control. COMPARISON: None available. FINDINGS: Pulmonary Arteries: No pulmonary emboli. Thoracic Aorta: No acute abnormality. Heart: Normal. Lungs: There is consolidation within the anterolateral left upper lobe and within the majority of the left lower lobe. There is mild consolidation at the right lung base. Pleura: No pleural effusion. No pneumothorax. Lymph Nodes: There are a few borderline enlarged left hilar nodes. Shotty mediastinal nodes are noted. Additional Findings: There appears to be mild residual thymus in the anterior superior mediastinum. Upper Abdomen: Hepatic steatosis. Skeletal Structures: No significant osseous abnormality. IMPRESSION: 1. No CT evidence for pulmonary embolism. 2. Bilateral pneumonia primarily in the left lung where consolidation is extensive. Borderline enlarged left hilar nodes and a BE reactive. - Medical Decision Making This patient presents to the emergency department with a complaint of generalized chest discomfort, shortness of breath and cough over the past 3 to 4 days. Just before this the patient had tested positive for COVID-19. There is some rhonchi heard but otherwise the patient does not appear in any respiratory or acute distress. Chest x-ray shows some left basilar opacity concerning for pneumonia. Labs were mostly unremarkable including CBC, metabolic panel, urinalysis and the patient is not . She had a CT angiography of the chest that did not show any evidence of pulmonary embolism but showed bilateral pneumonia with left much greater than right. The patient had a 2-minute ambulatory pulse ox test and her oxygen saturation did not drop below 96%. For this reason the patient appears safe for discharge home at this time. She was given a dose of Decadron. She will be given a prescription for azithromycin and an albuterol inhaler. We discussed isolation/quarantine and outpatient follow-up with primary care when possible. The patient has a finger pulse oximeter at home. She will return to the emergency department with decreased oxygen saturation, worsening of her symptoms, or with any acute distress. Critical Care Time: No Critical care attestation.: If time is entered above; I have spent that time in minutes in the direct care of this critically ill patient, excluding procedure time. ED Disposition Clinical Impression: COVID-19 Pneumonia Qualifiers: Pneumonia type: due to unspecified organism Laterality: bilateral Lung location: unspecified part of lung Qualified Code(s): J18.9 - Pneumonia, unspecified organism Disposition: HOME / SELF CARE / HOMELESS Is pt being admited?: No Condition: Stable Instructions: COVID-19, Community-Acquired Pneumonia, Adult, Bacterial Pneumonia (ED) Additional Instructions: Please follow-up with a primary care physician. Please make sure you isolate yourself and quarantine from anybody who is elderly, immunocompromised, chronically ill or debilitated, not vaccinated against COVID-19. Return to the emergency department with any worsening of your symptoms, new or concerning symptoms not addressed during this current emergency department visit, or with any acute distress. Prescriptions: Albuterol Mdi (or & Nicu Only) [ProAir HFA Inhaler] 2 puff IH QID PRN #8.5 gram PRN Reason: Shortness Of Breath Azithromycin [Zithromax Z-SHARON] 250 mg PO DAILY #6 tab Azithromycin [Zithromax Z-SHARON] 250 mg PO DAILY #6 tab Referrals: PRIMARY CARE, [Primary Care Provider] - 3-5 Days Time of Disposition: 16:56
[2021-05-31 14:54] LABS: Alanine Aminotransferase 32 units/L (7-56); Albumin 3.9 g/dL (3.9-5); BUN/Creatinine Ratio 10; Blood Urea Nitrogen 6 mg/dL (7-17); Calcium 9.1 mg/dL (8.4-10.2); Hemolysis Index 15
[2021-05-31 15:20] LABS: Bilirubin,Urine NEG (Negative); Blood,Urine MOD (Negative); Color,Urine Amber (Yellow); Mucus,Urine FEW /HPF
--- NOTE | 2021-05-31 15:23 | XRay Report ---
XR chest 1V ap INDICATION / CLINICAL INFORMATION: CP COMPARISON: X-ray from 2011 would not load FINDINGS: SUPPORT DEVICES: None. HEART / MEDIASTINUM: Cardiac silhouette is partially obscured. LUNGS / PLEURA: Elevated left hemidiaphragm. Left basilar opacity. Costophrenic sulci are sharp. No p neumothorax. ADDITIONAL FINDINGS: No significant additional findings. IMPRESSION: 1. Elevated left hemidiaphragm with left basilar opacity. Findings could be related atelectasis or ai rspace disease such as pneumonia. Signer Name: Leon Tidwell MD Signed: 05/31/2021 3:19 PM Workstation Name: [id number]
--- NOTE | 2021-05-31 15:55 | Cat Scan Report ---
CTA CHEST WITH IV CONTRAST INDICATION: PE PROTOCOL; SOB; COVID POS. TECHNIQUE: Axial CT images were obtained through the chest after injection of IV contrast. 3 plane MIP reconstru ctions were produced. All CT scans at this location are performed using CT dose reduction for ALARA b y means of automated exposure control. COMPARISON: None available. FINDINGS: Pulmonary Arteries: No pulmonary emboli. Thoracic Aorta: No acute abnormality. Heart: Normal. Lungs: There is consolidation within the anterolateral left upper lobe and within the majority of the left lower lobe. There is mild consolidation at the right lung base. Pleura: No pleural effusion. No pneumothorax. Lymph Nodes: There are a few borderline enlarged left hilar nodes. Shotty mediastinal nodes are noted . Additional Findings: There appears to be mild residual thymus in the anterior superior mediastinum. Upper Abdomen: Hepatic steatosis. Skeletal Structures: No significant osseous abnormality. IMPRESSION: 1. No CT evidence for pulmonary embolism. 2. Bilateral pneumonia primarily in the left lung where consolidation is extensive. Borderline enlarg ed left hilar nodes and a BE reactive. Signer Name: Yoni Mary MD Signed: 05/31/2021 3:51 PM Workstation Name: [id number]
[2021-05-31] MEDS ORDERED: dexAMETHasone 4 MG/ML VIAL IV ONE (16:49)
[2021-05-31 17:23] VITALS: BP 110/76
--- NOTE | 2021-06-01 10:53 | Electrocardiograph Report ---
[facility] Test Date: 2021-05-31 Test Time: 15:50:07 Pat Name: BRANDYN PURDY Department: Room: Gender: F [employer]: gp : 1990 Requested By: SELENA NUNEZ Order Number: [id number] Reading MD: Arnoldo Carey Measurements Intervals [place] Rate: 79 P: 74 VA: 169 QRS: 23 QRSD: 94 T: -1 QT: 383 QTc: 440 Interpretive Statements Sinus rhythm nonspecific st-t No previous ECG available for comparison Electronically Signed On 06-01-2021 10:53:09 EST by Arnoldo Carey
== END 2021-05-31 17:24 | disposition home or self-care (01) ==
LOC: ED 13:43
DX: U07.1 COVID-19 (principal); J18.9 Pneumonia, unspecified organism
CPT/HCPCS: 36415; 71045; 71275; 80053; 81001; 84484; 84703; 85025; 93005; 96361; 96374; 99284; J1100; J7030; Q9967; Q0162

== ENCOUNTER 2021-06-05 11:04 | Emergency (ER) | payer OTHER ==
--- NOTE | 2021-06-05 11:08 | Emergency Department Report ---
ED General Adult HPI - General Chief complaint: Dyspnea/Respdistress Stated complaint: SOB Time Seen by Provider: 06/05/21 11:08 - History of Present Illness Initial comments: patient presents with 3-day history of left leg pain. Pain was gradual onset. It is pleuritic in nature. She states that she cannot take any kind of deep breath without having sharp and excruciating pain in the left flank area. She has noticed some dark urine as well. She has no fevers or chills. There is no cough. She states that she did have Covid diagnosed approximately 10 days ago. She is still fatigued and tired. She still feels winded. She still cannot exert herself without getting short of breath. She did not have pain like this however. She decided to come here for evaluation and treatment because of the pain. Again, there is no trauma. She has no vomiting or diarrhea. - Related Data Previous Rx's Medication Instructions Recorded Last Taken Type Ranitidine HCl [Zantac] 300 mg PO QDAY #30 tablet 07/07/14 07/17/14 Rx Albuterol Sulfate [Ventolin HFA] 2 puff IH Q4H PRN #1 hfa.aer.ad 08/09/14 Unknown Rx predniSONE [Deltasone] 50 mg PO QDAY #5 tab 08/09/14 Unknown Rx Fluticasone [Flonase] 1 spray NS QDAY #1 bottle 12/16/14 Unknown Rx Acetaminophen/Codeine [Tylenol 1 tab PO Q4HR PRN #21 tablet 03/03/15 Unknown Rx /Codeine # 3 tab] Famotidine [Pepcid] 20 mg PO BID #60 tablet 04/14/21 Unknown Rx Ondansetron [Zofran Odt] 4 mg PO Q6HR PRN #15 tab.rapdis 04/14/21 Unknown Rx medroxyPROGESTERone ACETATE 10 mg PO DAILY #14 tablet 04/14/21 Unknown Rx [Provera] Multivitamin with Folic Acid [Cvs 400 mcg PO QDAY #30 tablet 04/19/21 Unknown Rx One Daily Essential Tablet] chlordiazePOXIDE [Librium] 25 mg PO Q6H PRN #25 capsule 04/19/21 Unknown Rx Albuterol Mdi (or & Nicu Only) 2 puff IH QID PRN #8.5 gram 05/31/21 Unknown Rx [ProAir HFA Inhaler] Azithromycin [Zithromax Z-SHARON] 250 mg PO DAILY #6 tab 05/31/21 Unknown Rx Azithromycin [Zithromax Z-SHARON] 250 mg PO DAILY #6 tab 05/31/21 Unknown Rx Ibuprofen [Motrin] 800 mg PO Q8HR PRN #20 tablet 06/05/21 Unknown Rx Lidocaine [Lidoderm] 1 each TP DAILY #30 adh..patch 06/05/21 Unknown Rx Allergies Allergy/AdvReac Type Severity Reaction Status Date / Time naproxen Allergy HALLUCINATE Verified 06/05/21 11:25 ED Review of Systems ROS: Stated complaint: SOB Other details as noted in HPI Comment: All other systems reviewed and negative Constitutional: denies: fever Eyes: denies: eye pain ENT: denies: throat pain Respiratory: denies: cough Cardiovascular: denies: chest pain Endocrine: denies: unexplained weight loss Gastrointestinal: as per HPI Genitourinary: as per HPI Musculoskeletal: as per HPI Skin: denies: rash Neurological: denies: headache Hematological/Lymphatic: denies: easy bruising ED Past Medical Hx - Past Medical History Hx GERD: Yes Additional medical history: H Pylori. PCOS. Covid - Surgical History Additional Surgical History: Left hand foreign body - Family History Family history: no significant - Social History Smoking Status: Never Smoker Substance Use Type: None - Medications Home Medications: Home Medications Medication Instructions Recorded Confirmed Last Taken Type Ranitidine HCl [Zantac] 300 mg PO QDAY #30 tablet 07/07/14 07/19/14 07/17/14 Rx Albuterol Sulfate [Ventolin HFA] 2 puff IH Q4H PRN #1 hfa.aer.ad 08/09/14 Unknown Rx predniSONE [Deltasone] 50 mg PO QDAY #5 tab 08/09/14 Unknown Rx Fluticasone [Flonase] 1 spray NS QDAY #1 bottle 12/16/14 Unknown Rx Acetaminophen/Codeine [Tylenol 1 tab PO Q4HR PRN #21 tablet 03/03/15 Unknown Rx /Codeine # 3 tab] Famotidine [Pepcid] 20 mg PO BID #60 tablet 04/14/21 Unknown Rx Ondansetron [Zofran Odt] 4 mg PO Q6HR PRN #15 tab.rapdis 04/14/21 Unknown Rx medroxyPROGESTERone ACETATE 10 mg PO DAILY #14 tablet 04/14/21 Unknown Rx [Provera] Multivitamin with Folic Acid [Cvs 400 mcg PO QDAY #30 tablet 04/19/21 Unknown Rx One Daily Essential Tablet] chlordiazePOXIDE [Librium] 25 mg PO Q6H PRN #25 capsule 04/19/21 Unknown Rx Albuterol Mdi (or & Nicu Only) 2 puff IH QID PRN #8.5 gram 05/31/21 Unknown Rx [ProAir HFA Inhaler] Azithromycin [Zithromax Z-SHARON] 250 mg PO DAILY #6 tab 05/31/21 Unknown Rx Azithromycin [Zithromax Z-SHARON] 250 mg PO DAILY #6 tab 05/31/21 Unknown Rx Ibuprofen [Motrin] 800 mg PO Q8HR PRN #20 tablet 06/05/21 Unknown Rx Lidocaine [Lidoderm] 1 each TP DAILY #30 adh..patch 06/05/21 Unknown Rx ED Physical Exam - General Limitations: No Limitations, Other ( pulse ox noted and normal) General appearance: alert, in distress ( moderate discomfort), obese ( morbid) - Head Head exam: Present: atraumatic, normocephalic - Eye Eye exam: Present: normal appearance, EOMI - ENT ENT exam: Present: normal orophraynx, normal external ear exam - Neck Neck exam: Present: normal inspection. Absent: meningismus - Respiratory Respiratory exam: Present: normal lung sounds bilaterally. Absent: respiratory distress - Cardiovascular Cardiovascular Exam: Present: regular rate, normal rhythm - GI/Abdominal GI/Abdominal exam: Present: soft. Absent: tenderness - Extremities Exam Extremities exam: Present: normal capillary refill. Absent: calf tenderness - Back Exam Back exam: Present: CVA tenderness (L). Absent: CVA tenderness (R) - Neurological Exam Neurological exam: Present: alert, oriented X3, CN II-XII intact, normal gait. Absent: motor sensory deficit - Psychiatric Psychiatric exam: Present: normal affect, normal mood - Skin Skin exam: Present: warm, dry ED Course Vital Signs 06/05/21 06/05/21 06/05/21 11:20 12:00 12:13 Temperature 98.1 F Pulse Rate 78 97 H Respiratory 14 Rate Blood Pressure 138/81 110/67 [Left] O2 Sat by Pulse 100 100 Oximetry 12/21/21 12/21/21 13:20 14:05 Temperature Pulse Rate 72 72 Respiratory Rate Blood Pressure 107/64 122/72 [Left] O2 Sat by Pulse Oximetry - Reevaluation(s) Reevaluation #1: 06/05/21 11:08 IV, labs, and CT were ordered. Old records reviewed. Reevaluation #2: 06/05/21 15:[address] were noted. Patient was discharged. ED Medical Decision Making - Lab Data Result diagrams: 06/05/21 11:52 06/05/21 11:52 - Radiology Data Radiology results: report reviewed - Medical Decision Making Patient presented secondary to acute onset of left flank pain. There was no trauma. She did not have hematuria. There is no dysuria or frequency. There is no suggestion of ureteral colic. This was pleuritic. She had diagnosed with Covid a couple of Weeks ago. There is concern for PE based on that history. CTA was negative for PE. Likewise no pneumonia, pneumothorax, tumor, mass, or pathology otherwise. Critical Care Time: No Critical care attestation.: If time is entered above; I have spent that time in minutes in the direct care of this critically ill patient, excluding procedure time. ED Disposition Clinical Impression: Left flank pain Disposition: HOME / SELF CARE / HOMELESS Is pt being admited?: No Condition: Stable Instructions: Flank Pain, Adult, [id number] Additional Instructions: Drink any water. Strain the urine. Return for problems. Follow-up with your regular doctor for recheck. Use the medication as needed for pain. Prescriptions: Lidocaine [Lidoderm] 1 each TP DAILY #30 adh..patch Ibuprofen [Motrin] 800 mg PO Q8HR PRN #20 tablet PRN Reason: Pain, Mild (1-3)
[2021-06-05] MEDS ORDERED: fentaNYL 100 MCG/2 ML INJ IV ONE (11:09)
[2021-06-05 12:14] LABS: Hematocrit 44.7 % (30.3-42.9); Hemoglobin 14.3 gm/dl (10.1-14.3); Mean Corpuscular HGB Conc 32 % (30-34); Mean Corpuscular Volume 94 fl (79-97); Platelet Count 670 K/mm3 (140-440); Red Blood Count 4.78 M/mm3 (3.65-5.03); Red Cell Distribution Width 16.2 % (13.2-15.2)
[2021-06-05 12:30] LABS: Blood Urea Nitrogen 8 mg/dL (7-17); Calcium 9.4 mg/dL (8.4-10.2); Hemolysis Index 3
[2021-06-05 12:35] LABS: BUN/Creatinine Ratio 13
--- NOTE | 2021-06-05 13:32 | Cat Scan Report ---
CTA CHEST WITH IV CONTRAST INDICATION: Left pleuritic pain. History of Covid 100 ML OMNI 350 . TECHNIQUE: Axial CT images were obtained through the chest after injection of 100 cc Omnipaque 350 IV contrast. 3 plane MIP reconstructions were produced. All CT scans at this location are performed using CT dose reduction for ALARA by means of automated exposure control. COMPARISON: Previous CTA chest 05/31/2021 FINDINGS: Pulmonary Arteries: No pulmonary emboli. Lungs: Previously demonstrated patchy left lung opacities have mildly improved. Trachea and Bronchi: No significant abnormality. Heart and Pericardium: No significant abnormality. Vasculature: No significant abnormality. Lymphatics: No lymphadenopathy. Additional Findings: None. Upper Abdomen: No acute findings. Skeletal Structures: No acute findings or aggressive bone lesions. IMPRESSION: 1. No CT evidence for pulmonary embolism. 2. Interval mild improvement in previously demonstrated areas of consolidation in the left lung. Signer Name: Eliot Gonzalez MD Signed: 06/05/2021 1:28 PM Workstation Name: [id number]
[2021-06-05 14:57] LABS: Bilirubin,Urine NEG (Negative); Blood,Urine NEG (Negative); Color,Urine Straw (Yellow); Protein,Urine <15 mg/dL mg/dL (Negative); Urobilinogen,Urine < 2.0 mg/dL (<2.0)
[2021-06-05 15:58] VITALS: BP 128/80
== END 2021-06-05 15:58 | disposition home or self-care (01) ==
LOC: ED 11:04
DX: R10.9 Unspecified abdominal pain (principal); R07.81 Pleurodynia; Z88.8 Allergy status to other drugs, medicaments and biological substances; Z79.899 Other long term (current) drug therapy
CPT/HCPCS: 36415; 71275; 80048; 81001; 84703; 85027; 99284; Q9967